=== PATIENT | male | born 1970 | race Caucasian/White ===

== ENCOUNTER 2020-03-27 13:43 | Outpatient (CLI) | payer OTHER, SELFPAY ==
--- NOTE | 2020-03-27 14:23 | ECG_ITS ---
Measurements Intervals [place] Rate: 81 P: 54 NC: 155 QRS: 23 QRSD: 89 T: -1 QT: 351 QTc: 408 Interpretive Statements SINUS RHYTHM BORDERLINE ST-T WAVE ABNORMALITY- INFERIOR LEADS BORDERLINE ECG Electronically Signed On 03-27-2020 15:28:24 CDT by Umesh Greenwood D.O.
[2020-03-27 14:44] LABS: Basophils Absolute Auto 0.1 K/mm3 (0.0-0.1); Basophils Percent Auto 0.7 % (0.2-1.2); Eosinophils Absolute Auto 0.2 K/mm3 (0-0.3); Eosinophils Percent Auto 2.1 % (0-4.4); Hematocrit 43.9 % (42.0-52.0); Immature Granulocyte Absolute 0.04 K/mm3 (0.00-0.031); Immature Granulocyte Percent A 0.5 % (0-0.5); Lymphocytes Absolute Auto 1.56 K/mm3 (0.9-3.2); Lymphocytes Percent Auto 20.6 % (18.3-44.2); Mean Corpuscular HGB Conc 34.2 g/dl (32-36); Mean Corpuscular Hemoglobin 31.3 pg (26-34); Mean Corpuscular Volume 91.6 fl (80-100); Mean Platelet Volume 8.6 fl (7.4-10.4); Monocytes Absolute Auto 0.7 K/mm3 (0.1-0.6); Monocytes Percent Auto 9.7 % (2.6-8.5); Neutrophils Percent Auto 66.4 % (45.5-73.1); Platelet Count Result 341 k/mm3 (150-375); Red Blood Count 4.79 M/mm3 (4.6-6.20); Red Cell Distribution Width 12.5 % (11.5-14.5); White Blood Count 7.6 K/mm3 (4.5-10.0)
[2020-03-27 14:55] LABS: Urine Cotinine NEGATIVE
[2020-03-27 14:56] LABS: Hemoglobin A1C 5.4 % (<5.7)
[2020-03-27 14:58] LABS: Albumin Level 4.5 g/dL (3.5-5.1); Estimated Glomerular Filt Rate > 60; Glucose 98 mg/dL (75-110)
== END 2020-03-27 13:44 | disposition home or self-care (01) ==
LOC: ANHSURGERY 13:46
PROVIDERS: PCP Family Medicine; Visit Provider Orthopaedic Surgery
DX: Z01.818 Encounter for other preprocedural examination (principal); M16.11 Unilateral primary osteoarthritis, right hip
CPT/HCPCS: 36415; 80307; 82040; 82565; 82947; 83036; 85025; 87081; 93005

== ENCOUNTER 2020-04-06 00:18 | Outpatient (CLI) | payer OTHER, SELFPAY ==
[2020-04-06 16:46] LABS: SARS-CoV-2 RNA PCR Negative
== END 2020-04-06 00:19 | disposition home or self-care (01) ==
LOC: ANHCOVIDDT 00:19
PROVIDERS: PCP Family Medicine; Visit Provider Orthopaedic Surgery
DX: Z01.818 Encounter for other preprocedural examination (principal); Z11.59 Encounter for screening for other viral diseases; M16.11 Unilateral primary osteoarthritis, right hip
CPT/HCPCS: 87635; C9803; U0003

== ENCOUNTER 2020-04-09 14:37 | Inpatient (IN) | payer OTHER, SELFPAY ==
[2020-03-27 14:00] VITALS: BP 152/88; PULSE 84; RESP 20; TEMP 37.3; O2SAT 100; BMI 28.8
[2020-04-09] VITALS (14 sets, daily range): BP systolic 130–148; BP diastolic 65–92; PULSE 68–98; RESP 12–21; TEMP 36.3–37.6; O2SAT 93–100; BMI 26.6
--- NOTE | ~2020-04-09 | XR_ITS ---
EXAMINATION: XR hip RT min 2V DATE: 04/09/2020 13:40 INDICATION: Right hip arthroplasty. Postop. TECHNIQUE: 2 views of right hip were obtained. COMPARISON: None. FINDINGS: There is a total right hip arthroplasty in near-anatomic alignment. No fracture. There is g as in the soft tissues, consistent with recent surgery. IMPRESSION: 1. Total right hip arthroplasty in near-anatomic alignment. Reviewed, dictated and finalized at location A.
[2020-04-09] MEDS: TRANEXAMIC ACID 1,000MG/ISO100 1,000 MG/100 ML BAG 200 MG IVPB (09:30)
[2020-04-09] MEDS: LACTATED RINGERS 1,000 ML 30 ML IV CONT ×2 (09:30→13:17)
--- NOTE | 2020-04-09 09:48 | WPDANESEPP ---
Manishas - Evmarco a Pre Procedure Procedure: Operation Date: 04/09/20 10:30 Proposed Procedures p Right Total Hip Arthroplasty - Victor M Cuba MD Date/Time: 04/09/20 09:48 Pre Op Diagnosis: Right Hip OA Patient Data Age: 49 Gender: M Height: 6 ft 1 in Weight: 99.2 kg Last Vital Signs Temp 99.1 F 03/27/20 14:00 Pulse 84 03/27/20 14:00 Resp 20 03/27/20 14:00 BP 152/88 H 03/27/20 14:00 Pulse Ox 100 03/27/20 14:00 Allergies Allergy/AdvReac Type Severity Reaction Status Date / Time No Known Allergies Allergy Unknown Verified 03/11/12 10:34 Home Medications Medication Instructions Recorded Confirmed Type No Home Medications 03/27/20 03/27/20 History Patient hx anesthesia problems: none Family hx anesthesia problems: none PMFSH Past Medical History Medical History Hyperhidrosis Hypogonadism male Myalgia Osteoarthritis of right hip Surgical History Surgical History History of Achilles tendon repair Status post arthroscopic partial medial meniscectomy Family History Family History Grandparent Diabetes mellitus Family history of cardiovascular disease Social History Social History Smoking status: Never smoker Second hand tobacco smoke exposure: No Alcohol intake: current Exam Day of Procedure 04/09/20 09:48 Patient weight: overweight Heart: regular rate and rhythm Airway: Mallampati scale class II Neurological: alert and oriented
--- NOTE | 2020-04-09 10:03 | WPDANESEFPP ---
Anes - Eval Final PreProcedure Day of Procedure 04/09/20 10:03 Patient weight: overweight Heart: regular rate and rhythm Lungs: clear to auscultation Airway: Mallampati scale class II Neurological: alert and oriented Last oral intake: >/= 8 hours ASA classification: II Emergent: no Anesthetic plan: proceed Anesthesia type and monitoring: general ETT and standard monitoring Informed Consent: The patient's anesthetic plan and its attendant risks and benefits were discussed with the patient/family/POA. Questions were solicited and answers provided to the satisfaction of the patient/family/POA.
--- NOTE | 2020-04-09 10:37 | WPDHPUPDATE1 ---
History and Physical Update Update Date/Time: 04/09/20 10:37 History and Physical has been reviewed, including an updated exam of the patient. There are NO changes in the patient's condition. Risks, benefits, and alternatives have been discussed and questions answered. Patient agrees to proceed with procedure.
[2020-04-09] MEDS: ceFAZolin 2 GM/D5W 50 ML 2 GM/50 ML BAG IVPB (11:17)
[2020-04-09] MEDS: HYDROMORPHONE HCL 1 MG/ML INJ 0.5 MG IV PUSH ×3 (13:41→13:59)
--- NOTE | 2020-04-09 13:44 | P.OP_ITS ---
Procedure Note - Detailed Date of procedure: 04/09/20 Pre-op diagnosis: Right Hip OA Post-op diagnosis: same Procedure performed: Total hip arthroplasty. Implants: The Accolade II hip stem, 127 degree size 5 , was utilized with excellent press-fit. The 52 mm ADM acetabular component was impacted with excellent press-fit stability. The +0 , 28 mm Biolox ceramic femoral head was utilized. Anesthesia: GLMA Surgeon: Victor M Cuba MD Estimated blood loss (mL): 300 Drains: No Complications: None Condition: stable Findings: OPERATIVE DETAILS: The patient was given preoperative antibiotics. A general anesthetic was administered. The patient was carefully placed in the lateral decubitus position on the PEG board. The shoulders and hips were carefully positioned for component and leg length positioning reference. The hip was prepped and draped in the usual sterile fashion. A longitudinal incision was created over the posterior aspect of the greater trochanter. Careful dissection was brought down through the deep fascia with electrocautery. A minimally invasive optimized posterior approach to the hip was performed. The short external rotators and capsule were taken down in an L-shaped capsulotomy. The tissue was tagged for later repair using number 2 high strength suture. The femoral neck was measured and taken in situ. The femoral head was removed. The acetabulum was carefully exposed. The inferior capsule was released. The labrum was resected. The acetabulum was sequentially reamed to one over the intended cup size. The cup was impacted into position with excellent press-fit. Typical anatomic landmarks, including the bony contact points as well as the inferior transverse acetabular ligament were used to confirm cup positioning with preoperative templating. Attention was turned to the femur, which was carefully exposed. The hip was reamed and then broached sequentially. Excellent press-fit was obtained with the broach. The hip was trialed. Measurements were utilized, including the lesser trochanter as well as the center of the femoral head and the tip of the trochanter, and excellent assessment of the offset and leg lengths were confirmed. The real component was impacted into position. Trialing confirmed appropriate leg length and offset with soft tissue balancing as well apparent feel of the leg, both at the knee and the heel. Soft tissues were assessed using the the iliotibial band. Reduction of the posterior capsule and external rotators were also used as a secondary assessment. The hip was copiously irrigated with pulsatile lavage antibiotic solution periodically throughout the procedure. The real components were then assembled and reduced. The hip was stable throughout typical maneuvers, including extension, external rotation to 70 degrees, the position of sleep as well as flexion to 90 degrees with internal rotation past 45 degrees. The shake test confirmed stability without impingement. Osteophytes were removed as necessary. The short external rotators and capsule were repaired back to the posterior trochanter through drill holes. The deep fascia was repaired with running number 2 Quill suture, followed by 0 Stratafix suture and 2-0 Stratafix suture in the dermis. Steri- Strips were placed on the skin, followed by a sterile silver occlusive dressing. There were no complications. Meticulous hemostasis was maintained with the Aqua Mantys device. The patient was brought to the recovery room in stable condition. There were no complications.
[2020-04-09] MEDS: SODIUM CHLORIDE 0.9% IV 1,000 ML 125 ML IV CONT (15:04)
[2020-04-09 15:10] LABS: Hematocrit 39.1 % (42.0-52.0); Hemoglobin 13.5 g/dL (14.0-18.0)
--- NOTE | 2020-04-09 15:19 | ADMGEN ---
This patient, Yoel Kaplan, was admitted to 2 Medical Room 259-01. Patient/family oriented to hospital policies and general routines including ID bracelet, bed and alarms, visiting hours, pain management, procedures, bathroom and other care routines, personal items, smoking policy, room service/diet, and visiting hours. Valuables list has been completed. Information on how to activate the Rapid Response Team has been discussed. Patient/Family are encouraged to report perceived risks to care and to ask questions if they do not understand what they are told or what they should do.
[2020-04-09] MEDS: DOCUSATE SODIUM 100 MG CAPSULE PO (16:52)
[2020-04-09] MEDS: ASPIRIN 81 MG ENTERIC TABLET PO (16:52)
[2020-04-09] MEDS: KETOROLAC 15 MG/ML VIAL (*BKC) IV PUSH ×2 (16:57→23:43)
[2020-04-10 00:22] VITALS: BP 115/69; PULSE 83; RESP 18; TEMP 36.8; O2SAT 98
[2020-04-10 04:22] VITALS: BP 143/71; PULSE 73; RESP 20; TEMP 36.9; O2SAT 90
[2020-04-10 04:50] LABS: Basophils Percent Auto 0.2 % (0.2-1.2); Eosinophils Absolute Auto 2.9 K/mm3 (0-0.3); Eosinophils Percent Auto 25.3 % (0-4.4); Hematocrit 36.1 % (42.0-52.0); Hemoglobin 12.5 g/dL (14.0-18.0); Immature Granulocyte Absolute 0.06 K/mm3 (0.00-0.031); Immature Granulocyte Percent A 0.5 % (0-0.5); Lymphocytes Absolute Auto 1.59 K/mm3 (0.9-3.2); Lymphocytes Percent Auto 13.8 % (18.3-44.2); Mean Corpuscular HGB Conc 34.6 g/dl (32-36); Mean Corpuscular Hemoglobin 31.6 pg (26-34); Mean Corpuscular Volume 91.2 fl (80-100); Mean Platelet Volume 8.2 fl (7.4-10.4); Monocytes Absolute Auto 1.4 K/mm3 (0.1-0.6); Monocytes Percent Auto 12.2 % (2.6-8.5); Neutrophils Absolute Auto 5.5 K/mm3 (1.3-6.7); Platelet Count Result 273 k/mm3 (150-375); Red Blood Count 3.96 M/mm3 (4.6-6.20); Red Cell Distribution Width 12.4 % (11.5-14.5); White Blood Count 11.5 K/mm3 (4.5-10.0)
[2020-04-10 05:11] LABS: Blood Urea Nitrogen 9 mg/dL (9-20); Calcium 8.3 mg/dL (8.4-10.2); Carbon Dioxide 26 mmol/L (22-30); Chloride 103 mmol/L (98-107); Estimated CRCL calculation 90 ml/min; Estimated Glomerular Filt Rate > 60; Glucose 109 mg/dL (75-110); Potassium 3.9 mmol/L (3.4-5.0); Sodium 136 mmol/L (137-145)
[2020-04-10] MEDS: KETOROLAC 15 MG/ML VIAL (*BKC) IV PUSH ×2 (06:04→12:23)
[2020-04-10] MEDS: DOCUSATE SODIUM 100 MG CAPSULE PO (08:40)
[2020-04-10] MEDS: ASPIRIN 81 MG ENTERIC TABLET PO (08:41)
[2020-04-10 10:00] VITALS: BP 135/78; PULSE 78; RESP 17; TEMP 37; O2SAT 98
--- NOTE | 2020-04-10 10:13 | P.PNAN_ITS ---
Anes - Prog Note Post-Op Date/Time: 04/10/20 10:13 Cardiovascular status: normal Respiratory status: normal Airway patency: baseline Mental status: baseline Post-Op hydration status: normal Vital Signs: Last Vital Signs Temp 37.0 C 04/10/20 10:00 Pulse 78 04/10/20 10:00 Resp 17 04/10/20 10:00 BP 135/78 04/10/20 10:00 Pulse Ox 98 04/10/20 10:00 I/O: Intake & Output 04/09/20 04/10/20 04/10/20 23:59 07:59 15:59 Intake Total 440 1590 240 Output Total 0 2300 Balance 440 -710 240 Laboratory Tests 04/10/20 04:43 04/10/20 04:43 04/09/20 04/10/20 04/10/20 15:00 04:43 04:43 WBC 11.5 H RBC 3.96 L Hgb 13.5 L 12.5 L Hct 39.1 L 36.1 L MCV 91.2 MCH 31.6 MCHC 34.6 RDW 12.4 Plt Count 273 MPV 8.2 Immature Gran % (Auto) 0.5 Neut % (Auto) 48.0 Lymph % (Auto) 13.8 L [place] % (Auto) 12.2 H Eos % (Auto) 25.3 H Baso % (Auto) 0.2 Lymph # (Auto) 1.59 [place] # (Auto) 1.4 H Eos # (Auto) 2.9 H Baso # (Auto) 0.0 Abs Immat Gran (auto) 0.06 H Absolute Neuts (auto) 5.5 Absolute Nucleated RBC 0.0 Nucleated RBC % 0.0 Sodium 136 L Potassium 3.9 Chloride 103 Carbon Dioxide 26 BUN 9 Creatinine 1.00 Estim Creat Clear Calc 90 Estimated GFR > 60 Glucose 109 Calcium 8.3 L Post-procedural complaints: none Patient Feedback: Patient satisfied with anesthetic care.
[2020-04-10 14:00] VITALS: BP 114/67; PULSE 75; RESP 16; TEMP 36.8; O2SAT 98
--- NOTE | 2020-04-10 16:02 | P.DS_ITS ---
DS: Admitting Diagnosis Admitting Diagnosis Admitting Diagnosis: Unilateral primary osteoarthritis, right hip DS: Discharge Diagnosis Discharge Diagnosis (1) Status post total hip replacement, right: Code(s): Z96.641 - Presence of right artificial hip joint Status: Acute DS: Summary Hospital Course Reason for hospitalization: Total hip arthroplasty. Hospital Course: Tolerated surgery well. Progressed appropriately with therapy. Status at Discharge Functional status at discharge: uses cane/walker Time Spent with Patient Time attestation: Total time spent providing and/or coordinating discharge services: Exam Const: General: no acute distress Resp: Effort & Inspection: normal respiratory effort Skin: Other: Wound healing well. Mepilex dressing intact. No hematoma or drainage. Neuro: Motor exam (neuro): 5/5 motor strength present throughout Sensory Exam: normal sensation Psych: Mental Status: mental status grossly normal Speech and movement: Normal speech and movement present DS: Data Data Completed and Pending Labs on day of discharge: Labs from last 24 hours 04/10/20 04/10/20 04:43 04:43 WBC 11.5 H RBC 3.96 L Hgb 12.5 L Hct 36.1 L MCV 91.2 MCH 31.6 MCHC 34.6 RDW 12.4 Plt Count 273 MPV 8.2 Immature Gran % (Auto) 0.5 Neut % (Auto) 48.0 Lymph % (Auto) 13.8 L [place] % (Auto) 12.2 H Eos % (Auto) 25.3 H Baso % (Auto) 0.2 Lymph # (Auto) 1.59 [place] # (Auto) 1.4 H Eos # (Auto) 2.9 H Baso # (Auto) 0.0 Abs Immat Gran (auto) 0.06 H Absolute Neuts (auto) 5.5 Absolute Nucleated RBC 0.0 Nucleated RBC % 0.0 Sodium 136 L Potassium 3.9 Chloride 103 Carbon Dioxide 26 BUN 9 Creatinine 1.00 Estim Creat Clear Calc 90 Estimated GFR > 60 Glucose 109 Calcium 8.3 L Discharge Plan Discharge Attending physician on discharge: Victor M Cuba Discharging Clinician: Victor M Cuba Patient Disposition: Home, Self-Care Activity: may shower Diet: as tolerated Wound Care Instructions: follow printed instructions Discharge Instructions: See instruction sheet Patient Instructions: Antibiotic Form, Pain Management (GEN), Precautions after Total Joint Replacement Surgery (DC), Total Hip Replacement (DC) Stand Alone Forms: General Discharge Information Follow-up/Referrals: Victor M Cuba MD [Physician] - Discharge Medications: New oxycodone-acetaminophen 5-325 mg tablet 1 - 2 tablet PO Q4-6H MDD 8 tablets PRN (Reason: pain) Qty: 30 RF: 0 aspirin [Enteric Coated Aspirin] 81 mg tablet,delayed release (DR/EC) 81 mg PO DAILY Qty: 28 RF: 0 No Action No Home Medications RF: 0 Date of admission: 04/09/20 14:37 Primary Care Provider: Jagruti Garcia Admitting Provider: Victor M Cuba Attending physician on admission: Victor M Cuba
--- NOTE | 2020-04-10 16:45 | PC.NURSE ---
Addendum entered by Ned Fenton RN 04/10/20 16:51: Wrong patient. Original Note: Patient refusing to eat anything other than orange sherbert and pepsi. Discussed in depth with patient (25+ minutes) that his diet needs to consist of more protein, etc. in order to properly heal and get stronger. Patient stating that he doesn't want to eat anything other than sherbert and pepsi and that we are taking his rights away from him by not allowing him to eat what/when he wants. Thrive was ordered today by cottage master and patient is very upset that this arrived on his tray instead of another sherbert. Again discussed in length in regards to patients diet. Patient making comments such as does it look like I need to eat nutritious? I'm not going to wither away to nothing. It seems as though every educational method I attempted to discuss with patient, he is argumentative regardless of approach. Will leave voice message with cottage master to discuss the issues stated above in further detail tomorrow.
== END 2020-04-10 16:57 | disposition home or self-care (01) | DRG 470 ==
LOC: ANH2MED 14:39
PROVIDERS: Admitting Provider Orthopaedic Surgery; PCP Family Medicine; Visit Provider Orthopaedic Surgery
PROC: 0SR903A Replacement of Right Hip Joint with Ceramic Synthetic Substitute, Uncemented, Open Approach (ICD-10-PCS; CPT 27130; principal; 2020-04-09 10:30)
DX: M16.11 Unilateral primary osteoarthritis, right hip (principal)
CPT/HCPCS: 36415; 73502; 80048; 85014; 85018; 85025; 97110; 97116; 97161; 97165; A9270; C1776; J0131; J0171; J0690; J1100; J1170; J1885; J2250; J2270; J2405; J2704; J2710; J2795; J3010; J7030; J7120

== ENCOUNTER → 2021-01-11 08:28 | Outpatient (CLI) | payer OTHER, SELFPAY ==
--- NOTE | ~2021-01-11 | XR_ITS ---
XR hand RT min 3V DATE: 01/11/2021 09:00 INDICATION: Polymyalgia rheumatica TECHNIQUE: 3 views COMPARISON: None FINDINGS: There is spurring at the radial ulnar articulation. There is moderate osteoarthritis at the first carpometacarpal joint. There is prominent osteoarthriti s at the third metacarpophalangeal joint. There is osteoarthritis at the third proximal interphalange al joint. No fracture or dislocation, periosteal reaction or bone destruction. No erosive change or chondrocalc inosis. IMPRESSION: Osteoarthritis at first carpometacarpal and third metacarpophalangeal and proximal interp halangeal joints Reviewed, dictated and finalized at location A. DYEING TENDER IMPRESSION: Osteoarthritis at first carpometacarpal and third metacarpophalange al and proximal interphalangeal joints
--- NOTE | ~2021-01-11 | XR_ITS ---
XR hand LT min 3V DATE: 01/11/2021 09:00 INDICATION: Polymyalgia rheumatica TECHNIQUE: 3 views of right hand COMPARISON: None FINDINGS: There is mild osteoarthritis at the first carpometacarpal joint and first and third metacar pophalangeal joints. No fracture or dislocation, periosteal reaction or bone destruction, erosive change or chondrocalcino sis is evident. IMPRESSION: Mild osteoarthritis at first carpometacarpal and first and third metacarpophalangeal join ts Reviewed, dictated and finalized at location A. CIATE STORE DIRECTOR IMPRESSION: Mild osteoarthritis at first carpometacarpal and first and third me tacarpophalangeal joints
== END ==
PROVIDERS: Visit Provider Internal Medicine
DX: M35.3 Polymyalgia rheumatica (principal); M19.041 Primary osteoarthritis, right hand; M19.042 Primary osteoarthritis, left hand
CPT/HCPCS: 73130